=== PATIENT | male | born 1975 | race Caucasian/White ===

== ENCOUNTER 2017-03-13 19:17 | Emergency (ER) | payer SELFPAY ==
[~2017-03-13] VITALS: Ht 175.3 cm; Wt 75.0 kg
[~2017-03-13 19:17] MED LIST: DILA2TAB4 PO; LANSO30 PO/TUBE; METH10TA PO; XANA2TAB2 PO
[2017-03-13 19:27] VITALS: BP 143/92; PULSE 74; PULSE 76; RESP 16; RESP 18; TEMP 97.7; O2SAT 94; O2SAT 96
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
[2017-03-13] MEDS ORDERED: TETANUS/DIPHTHERIA TOXOID ADULT 0.5 ML VIAL IM ONE (19:45)
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
== END 2017-03-13 20:58 ==
LOC: NEPE 19:17
DX: S09.90XA Unspecified injury of head, initial encounter (principal); S16.1XXA Strain of muscle, fascia and tendon at neck level, initial encounter; R11.10 Vomiting, unspecified; R42 Dizziness and giddiness; F32.9 Major depressive disorder, single episode, unspecified; F17.200 Nicotine dependence, unspecified, uncomplicated; Z88.0 Allergy status to penicillin; Z23 Encounter for immunization; W22.8XXA Striking against or struck by other objects, initial encounter
CPT/HCPCS: 70450; 72125; 90471; 90714